=== PATIENT | male | born 1960 | race Hispanic/Latino ===

== ENCOUNTER 2018-05-09 09:57 | Emergency (ER) | payer BC ==
[2018-05-09] MEDS ORDERED: Acetaminophen 500 MG TAB ONE (11:03)
== END 2018-05-09 12:15 | disposition home or self-care (01) ==
LOC: ERS 09:57
DX: J11.1 Influenza due to unidentified influenza virus with other respiratory manifestations (principal); E11.9 Type 2 diabetes mellitus without complications; Z79.4 Long term (current) use of insulin; Z79.899 Other long term (current) drug therapy
CPT/HCPCS: 36416; 96360

== ENCOUNTER 2022-10-23 17:22 | Emergency (ER) | payer BC ==
[2022-10-23] MEDS ORDERED: Ketorolac Tromethamine 30 MG/ML VIAL ONE (20:31)
== END 2022-10-23 20:53 | disposition home or self-care (01) ==
LOC: ERS 17:22
DX: S09.90XA Unspecified injury of head, initial encounter (principal); E11.9 Type 2 diabetes mellitus without complications; W22.8XXA Striking against or struck by other objects, initial encounter
CPT/HCPCS: 70450; 72125; 96372; J1885